=== PATIENT | female | born 1960 | race Caucasian/White ===

== ENCOUNTER 2025-01-25 13:58 | Inpatient (IN) | payer MEDICARE, BC, MEDICAID ==
[~2025-01-25] VITALS: Ht 175.3 cm; Wt 70.8 kg
[2025-01-25 14:58] LABS: PLATELET COUNT (AUTO) 631 K/uL (150-450); RED BLOOD CELL COUNT(AUTO) 3.61 MIL/uL (4.0-5.2); RED CELL DISTRIBUTION WIDTH 20.2 % (11.5-15.0)
[2025-01-25 15:03] LABS: WHITE BLOOD COUNT (AUTO) 34.6 K/uL (4.3-11.0)
[2025-01-25 15:05] LABS: CALCIUM, SERUM 9.6 mg/dL (8.5-10.1); CREATININE 0.3 mg/dL (0.6-1.3); SODIUM SERUM 134 mmol/L (136-145); UREA NITROGEN, BLOOD 24 mg/dL (7-18)
[2025-01-25 15:12] LABS: INR 1.04 (0.91-1.10)
[2025-01-25 15:13] LABS: ASPARTATE AMINOTRANSFERASE 38 U/L (15-37); LACTIC ACID 1.0 mmol/L (0.4-2.0); TOTAL PROTEIN, SERUM 8.4 g/dL (6.4-8.2)
[2025-01-25 15:27] LABS: APPEARANCE,URINE SLIGHTLY CLOUDY (CLEAR); BLOOD, URINE TRACE-INTA Ery/uL (NEGATIVE); LEUKOCYTE ESTERASE ,URINE 1+ (NEGATIVE); NITRITE, URINE NEGATIVE (NEGATIVE); UGLUCOSE NEGATIVE (NEGATIVE)
[2025-01-25 15:44] LABS: NEUTROPHILS % (MANUAL) 89 (42-76)
[2025-01-25 15:45] LABS: LYMPHOCYTES % (MANUAL) 10 % (16-48); MONOCYTES % (MANUAL) 1 % (0-11.0); PLATELET ESTIMATE INCREASED
[2025-01-25] MEDS ORDERED: ALBUTEROL 2.5 MG IH (15:54)
[2025-01-25] MEDS ORDERED: PSEU15LI BNOSTRILS (15:54)
[2025-01-25] MEDS ORDERED: SCOP1PAT11 TD (15:54)
[2025-01-25] MEDS ORDERED: MERO1PIG IV (15:54)
[2025-01-25] MEDS ORDERED: CLON0.5T4 GT (15:54)
[2025-01-25] MEDS ORDERED: HYDR-4075 GT (15:54)
[2025-01-25] MEDS ORDERED: LEVO50TA8 GT (15:54)
[2025-01-25] MEDS ORDERED: MULT-213 GT (15:54)
[2025-01-25] MEDS ORDERED: BETHANECHOL CHLORIDE GT (15:54)
[2025-01-25] MEDS ORDERED: MIDO5TAB4 GT (15:54)
[2025-01-25] MEDS ORDERED: CHLO473M5 PO (15:54)
[2025-01-25] MEDS ORDERED: IBUP-1953 GT (15:54)
[2025-01-25] MEDS ORDERED: CYCL5TAB GT (15:54)
[2025-01-25] MEDS ORDERED: ACET-73 GT (15:54)
[2025-01-25] MEDS ORDERED: ONDA4TAB5 GT (15:54)
[2025-01-25] MEDS ORDERED: SIME80TA15 GT (15:54)
[2025-01-25] MEDS ORDERED: SUMA100T16 GT (15:54)
[2025-01-25] MEDS ORDERED: LORA10TA7 GT (15:54)
[2025-01-25] MEDS ORDERED: CLOB15OI3 TP (15:54)
[2025-01-25] MEDS ORDERED: ASPI-1169 GT (15:54)
[2025-01-25] MEDS ORDERED: PEG15DRO2 EACHEYE (15:54)
[2025-01-25] MEDS ORDERED: IBUP-1957 GT (15:54)
[2025-01-25] MEDS ORDERED: LACT1CAP61 GT (15:54)
[2025-01-25] MEDS ORDERED: CRAN500T3 GT (15:54)
[2025-01-25] MEDS ORDERED: ACET325T53 GT (15:54)
[2025-01-25] MEDS ORDERED: PREG50CA GT (15:54)
[2025-01-25] MEDS ORDERED: ENOX40DI SQ (15:54)
[2025-01-25] MEDS ORDERED: METO25TA6 GT (15:54)
[2025-01-25] MEDS ORDERED: GLYC2TAB21 GT (15:54)
[2025-01-25] MEDS ORDERED: ALBUTEROL IH (15:54)
[2025-01-25] MEDS ORDERED: DIAZ5TAB GT (15:54)
[2025-01-25] MEDS ORDERED: MAGN400O6 GT (15:54)
[2025-01-25] MEDS ORDERED: NA P133E RC (15:54)
[2025-01-25] MEDS ORDERED: HYDR-3972 GT (15:54)
[2025-01-25] MEDS ORDERED: BISA10SU11 RC (15:54)
[2025-01-25] MEDS ORDERED: POLY17PO4 GT (15:54)
[2025-01-25] MEDS ORDERED: DIGOXIN GT (15:54)
[2025-01-25] MEDS ORDERED: ATROVENT IH (15:54)
[2025-01-25] MEDS ORDERED: LANS30CA56 GT (15:54)
[2025-01-25] MEDS ORDERED: DOCU50LI GT (15:54)
[2025-01-25] MEDS ORDERED: CETI10CA8 GT (15:54)
[2025-01-25 15:55] LABS: ADD URINE CULTURE YES; COARSE GRANULAR CASTS,URINE Few /LPF (None Seen); SQUAMOUS EPITHELIAL CELL,UR Moderate /HPF (None Seen)
[2025-01-25] MEDS: PIPERACILLIN /TAZOBACTAM 3.375 G in IV D5W 50 ML IV ONE (16:00)
[2025-01-25] MEDS: ACETAMINOPHEN ES 500 MG TABLET PO ONE (16:09)
[2025-01-25] MEDS ORDERED: ACETAMINOPHEN ES 500 MG TABLET ONE (16:10)
[2025-01-25] MEDS: ACETAMINOPHEN ES 500 MG TABLET GT ONE (16:30)
[2025-01-25] MEDS ORDERED: SCOPOLAMINE PATCH 1 MG/72HR TD SCH (16:30)
[2025-01-25] MEDS ORDERED: DIAZEPAM 5 MG TABLET GT PRN (16:30)
[2025-01-25] MEDS ORDERED: MIDODRINE HCL (5MG) 5 MG TABLET GT PRN (16:30)
[2025-01-25] MEDS ORDERED: MORPHINE SULFATE INJ 2 MG/ML DISP.SYRIN IV PRN (16:30)
[2025-01-25] MEDS ORDERED: MAGNESIUM HYDROXIDE 30 ML UDC PO PRN (16:30)
[2025-01-25] MEDS ORDERED: DOSING PER PHARMACY-VANCOMYCIN IV XX PRN (16:30)
[2025-01-25] MEDS ORDERED: hydrALAZINE HCL IV 20 MG VIAL IV PRN (16:30)
[2025-01-25] MEDS ORDERED: ONDANSETRON HCL/PF 4 MG/2 ML VIAL IVP PRN (16:30)
[2025-01-25] MEDS ORDERED: ALBUTEROL FS 2.5 MG/0.5 ML VIAL.NEB NEB PRN (16:30)
[2025-01-25] MEDS: VANCOMYCIN 1 GM in IV D5W 250 ML IV ONE (16:34)
[2025-01-25 16:58] LABS: FRACTIONATED INSPIRED OXYGEN-V 100.0 %; PEEP,VBG 5 cm H2O; SET RATE, VBG 16.0; SITE, VBG LEFT RADIAL; VBG BASE EXCESS 7.7 mmol/L (-2.0-3.0); VBG HCO3 35.4 mmol/L (22.0-29.0); VBG MetHb 0.4 % (0.5-1.5); VBG OXYGEN SATURATION 97.0 % (60.0-85.0); VBG PCO2 70.2 mmHg (38.0-54.0); VBG PH 7.320 (7.320-7.430); VBG PO2 99.3 mmHg (23.0-48.0); VBG TOTAL HEMOGLOBIN 9.6 G/dL (12.0-16.0); VT, VBG 450 mL
[2025-01-25 17:49] VITALS: BP 150/82; TEMP 98.6; O2SAT 97
[2025-01-25] MEDS: CHLORHEXIDINE GLUCONATE 15 ML UDC MM SCH (19:23)
[2025-01-25] MEDS: METOPROLOL TARTRATE 25 MG TABLET GT SCH (19:23)
[2025-01-25] MEDS: DOXYCYCLINE 100 MG in IV D5W 100 ML IV SCH (19:25)
[2025-01-25] MEDS: SCOPOLAMINE PATCH 1 MG/72HR TD SCH (19:25)
[2025-01-25] MEDS: DOCUSATE SODIUM LIQ 100 MG/10 ML UDC PO SCH (19:26)
[2025-01-25] MEDS: ALBUTEROL FS 2.5 MG/0.5 ML VIAL.NEB NEB SCH (19:52)
[2025-01-25 20:16] LABS: ABG BASE EXCESS 9.3 mmol/L (-2.0-3.0); ABG OXYGEN SATURATION 97.6 % (94.0-98.0); ABG PCO2 70.8 mmHg (32.0-45.0); ABG PH 7.335 (7.350-7.450); ABG PO2 105.4 mmHg (83.0-108.0); ABG TOTAL HEMOGLOBIN 9.7 G/dL (12.0-16.0); FRACTIONATED INSPIRED OXYGEN 100.0 %; PEEP,BG 7 cm H2O; SET RATE, BG 20.0; SITE, ABG RIGHT RADIAL; VT, ABG 450 mL
[2025-01-25] MEDS: VANCOMYCIN 750 MG in IV D5W 250 ML IV ONE ×2 (20:23→20:35)
[2025-01-25] MEDS: MEROPENEM 1 G in IV NS 0.9% 100 ML IV SCH (21:12)
[2025-01-25] MEDS: HEPARIN SODIUM, PORCINE 5000 UNITS/1 ML VIAL SQ SCH (21:14)
[2025-01-26] MEDS: VANCOMYCIN HCL 1.25 GM in IV D5W 250 ML IV SCH ×2 (01:04→17:01)
[2025-01-26] MEDS ORDERED: VANCOMYCIN HCL 1.25 GM in IV D5W 250 ML IV SCH (02:00)
[2025-01-26] MEDS: JEVITY 1.2 CAL 1,000 ML BOTTLE GT PRN (02:43)
[2025-01-26 05:30] LABS: ABG BASE EXCESS 5.0 mmol/L (-2.0-3.0); ABG OXYGEN SATURATION 98.1 % (94.0-98.0); ABG PCO2 69.5 mmHg (32.0-45.0); ABG PH 7.294 (7.350-7.450); ABG PO2 128.3 mmHg (83.0-108.0); ABG TOTAL HEMOGLOBIN 10.0 G/dL (12.0-16.0); FRACTIONATED INSPIRED OXYGEN 100.0 %; PEEP,BG 7 cm H2O; SET RATE, BG 20.0; SITE, ABG RIGHT RADIAL; VT, ABG 450 mL
[2025-01-26 07:03] LABS: PLATELET COUNT (AUTO) 689 K/uL (150-450); RED BLOOD CELL COUNT(AUTO) 3.68 MIL/uL (4.0-5.2); RED CELL DISTRIBUTION WIDTH 19.7 % (11.5-15.0)
[2025-01-26 07:14] LABS: WHITE BLOOD COUNT (AUTO) 36.4 K/uL (4.3-11.0)
[2025-01-26 07:18] LABS: ASPARTATE AMINOTRANSFERASE 29.0 U/L (15-37); CALCIUM, SERUM 9.8 mg/dL (8.5-10.1); CREATININE 0.3 mg/dL (0.6-1.3); PHOSPHORUS 2.4 mg/dL (2.5-4.9); SODIUM SERUM 132.0 mmol/L (136-145); TOTAL PROTEIN, SERUM 8.4 g/dL (6.4-8.2); UREA NITROGEN, BLOOD 20.0 mg/dL (7-18)
[2025-01-26 08:00] VITALS: BP 120/71; TEMP 98.3; O2SAT 96
[2025-01-26] MEDS ORDERED: CLOBETASOL 0.05% OINT 30 GM TUBE TP PRN (09:00)
[2025-01-26] MEDS: LEVOTHYROXINE SODIUM 50 MCG TABLET GT SCH (09:14)
[2025-01-26] MEDS: ARTIFICIAL TEARS 15 ML BOTTLE EACHEYE SCH (09:15)
[2025-01-26] MEDS: ASPIRIN 81 MG TAB.CHEW GT SCH (09:15)
[2025-01-26] MEDS: PREGABALIN 25 MG CAPSULE GT SCH (09:15)
[2025-01-26] MEDS: DIGOXIN 0.25 MG TABLET GT SCH (09:20)
[2025-01-26] MEDS: POLYETHYLENE GLYCOL 3350 17 GM POWD.PACK PO SCH (09:20)
[2025-01-26 09:59] LABS: IRON, SERUM 12 ug/dl (50-175)
[2025-01-26 10:11] LABS: BAND % (MANUAL) 4 % (0.0-5.0); BASOPHILS % (MANUAL) 0 % (0.0-2.0); EOSINOPHILS % (MANUAL) 0 % (0-4); LYMPHOCYTES % (MANUAL) 5 % (16-48); MONOCYTES % (MANUAL) 2 % (0-11.0); NEUTROPHILS % (MANUAL) 89 (42-76); PLATELET ESTIMATE ADEQUATE
[2025-01-26 12:00] VITALS: BP 116/64; TEMP 99; O2SAT 98
[2025-01-26 12:20] VITALS: BP 129/74
[2025-01-26] MEDS: GLYCOPYRROLATE 1 MG TABLET GT PRN (12:41)
[2025-01-26] MEDS ORDERED: SUMATRIPTAN SUCCINATE 25 MG TABLET GT PRN (14:00)
[2025-01-26 16:00] VITALS: BP 124/81; TEMP 98.4; O2SAT 98
[2025-01-26] MEDS: NEUTRA PHOS 1 POWD.PACKET NG ONE (17:03)
[2025-01-26 20:00] VITALS: BP 130/87; TEMP 99; O2SAT 98
[2025-01-26] MEDS: IPRATROPIUM NEB FS 0.5 MG/2.5 ML AMPUL.NEB IH SCH (20:14)
[2025-01-26] MEDS: IV NS 0.9% 1,000 ML IV PRN (20:43)
[2025-01-27] VITALS (8 sets, daily range): BP systolic 90–128; BP diastolic 60–75; TEMP 97.7–99.4; O2SAT 98–100
[2025-01-27 08:31] LABS: PLATELET COUNT (AUTO) 675 K/uL (150-450); RED BLOOD CELL COUNT(AUTO) 3.55 MIL/uL (4.0-5.2); RED CELL DISTRIBUTION WIDTH 19.7 % (11.5-15.0); WHITE BLOOD COUNT (AUTO) 29.0 K/uL (4.3-11.0)
[2025-01-27 09:01] LABS: CALCIUM, SERUM 9.3 mg/dL (8.5-10.1); CREATININE 0.4 mg/dL (0.6-1.3); PHOSPHORUS 1.9 mg/dL (2.5-4.9); UREA NITROGEN, BLOOD 18.0 mg/dL (7-18)
[2025-01-27 09:08] LABS: SODIUM SERUM 137.0 mmol/L (136-145)
[2025-01-27] MEDS: IV NS 0.9% 1,000 ML IV SCH (12:12)
[2025-01-27] MEDS: METOPROLOL TARTRATE 25 MG TABLET GT SCH ×2 (13:32→17:25)
[2025-01-27] MEDS: IV NS 0.9% 1,000 ML IV ONE (13:53)
[2025-01-27] MEDS: NEUTRA PHOS 1 POWD.PACKET NG ONE (17:18)
[2025-01-27] MEDS: VANCOMYCIN 750 MG in IV D5W 250 ML IV SCH (18:02)
[2025-01-27] MEDS: ACETAMINOPHEN 325 MG TABLET PO PRN (22:47)
[2025-01-28] VITALS: BP 140/86; TEMP 98.1
[2025-01-28 04:00] VITALS: BP 121/81; TEMP 97.9
[2025-01-28 07:28] LABS: PLATELET COUNT (AUTO) 650 K/uL (150-450); RED BLOOD CELL COUNT(AUTO) 3.63 MIL/uL (4.0-5.2); RED CELL DISTRIBUTION WIDTH 19.8 % (11.5-15.0)
[2025-01-28 07:37] LABS: CALCIUM, SERUM 9.0 mg/dL (8.5-10.1); CREATININE 0.2 mg/dL (0.6-1.3); SODIUM SERUM 137.0 mmol/L (136-145); UREA NITROGEN, BLOOD 12.0 mg/dL (7-18)
[2025-01-28 08:00] VITALS: BP 152/89; TEMP 97.5; O2SAT 96
[2025-01-28 08:17] LABS: WHITE BLOOD COUNT (AUTO) 30.7 K/uL (4.3-11.0)
[2025-01-28 12:00] VITALS: BP 141/83; TEMP 98.8; O2SAT 94
[2025-01-28 12:25] LABS: BASOPHILS % (MANUAL) 0 % (0.0-2.0); EOSINOPHILS % (MANUAL) 0 % (0-4); LYMPHOCYTES % (MANUAL) 11 % (16-48); MONOCYTES % (MANUAL) 4 % (0-11.0); NEUTROPHILS % (MANUAL) 85 (42-76); PLATELET ESTIMATE ADEQUATE
[2025-01-28 16:00] VITALS: BP 150/95; TEMP 99; O2SAT 94
[2025-01-28] MEDS: IV NS 0.9% 1,000 ML IV PRN (19:18)
[2025-01-28 20:00] VITALS: BP 131/79; TEMP 98.2; O2SAT 96
[2025-01-28] MEDS: LEVOFLOXACIN 500 MG /D5W 100ML 500 MG in PREMIX 1 EA IV SCH (22:14)
[2025-01-28] MEDS: LEVOFLOXACIN 500 MG /D5W 100ML 100 ML IV ONE (22:38)
[2025-01-29] VITALS: BP 142/92; TEMP 98.4; O2SAT 96
[2025-01-29 04:00] VITALS: BP 134/87; TEMP 98.4; O2SAT 95
[2025-01-29 08:00] VITALS: BP 148/74; TEMP 98.8; O2SAT 97
[2025-01-29 08:21] LABS: CALCIUM, SERUM 9.0 mg/dL (8.5-10.1); CREATININE 0.2 mg/dL (0.6-1.3); SODIUM SERUM 132.0 mmol/L (136-145); UREA NITROGEN, BLOOD 15.0 mg/dL (7-18)
[2025-01-29 08:27] LABS: PLATELET COUNT (AUTO) 751 K/uL (150-450); RED BLOOD CELL COUNT(AUTO) 3.52 MIL/uL (4.0-5.2); RED CELL DISTRIBUTION WIDTH 19.6 % (11.5-15.0); WHITE BLOOD COUNT (AUTO) 26.9 K/uL (4.3-11.0)
[2025-01-29 09:56] LABS: LYMPHOCYTES % (MANUAL) 4 % (16-48); MONOCYTES % (MANUAL) 3 % (0-11.0); MYELOCYTES % 2 % (0-0); NEUTROPHILS % (MANUAL) 91 (42-76); PLATELET ESTIMATE INCREASED
[2025-01-29 12:00] VITALS: BP 139/79; TEMP 98.6; O2SAT 97
[2025-01-29 16:00] VITALS: BP 108/70; TEMP 98.4; O2SAT 100
[2025-01-29 20:00] VITALS: BP 133/81; TEMP 98.2; O2SAT 95
[2025-01-30] VITALS: BP 136/79; TEMP 97.3; O2SAT 95
[2025-01-30 04:00] VITALS: BP 124/69; TEMP 97.9; O2SAT 95
[2025-01-30 07:59] LABS: PLATELET COUNT (AUTO) 752 K/uL (150-450); RED BLOOD CELL COUNT(AUTO) 3.38 MIL/uL (4.0-5.2); RED CELL DISTRIBUTION WIDTH 19.9 % (11.5-15.0); WHITE BLOOD COUNT (AUTO) 21.8 K/uL (4.3-11.0)
[2025-01-30 08:00] VITALS: BP 125/69; TEMP 98.4; O2SAT 97
[2025-01-30 08:22] LABS: CALCIUM, SERUM 9.1 mg/dL (8.5-10.1); CREATININE 0.3 mg/dL (0.6-1.3); SODIUM SERUM 139.0 mmol/L (136-145); UREA NITROGEN, BLOOD 18.0 mg/dL (7-18)
[2025-01-30 12:00] VITALS: BP 128/78; TEMP 98.1; O2SAT 97
[2025-01-30 13:13] LABS: LYMPHOCYTES % (MANUAL) 8 % (16-48); METAMYELOCYTES % 2 % (0-0); MONOCYTES % (MANUAL) 3 % (0-11.0); MYELOCYTES % 4 % (0-0); NEUTROPHILS % (MANUAL) 83 (42-76); PLATELET ESTIMATE INCREASED
[2025-01-30 16:00] VITALS: BP 127/82; TEMP 99.4; O2SAT 98
[2025-01-30 20:00] VITALS: BP 117/71; TEMP 96.8; O2SAT 99
[2025-01-31] VITALS: BP 123/74; TEMP 96.9; O2SAT 99
[2025-01-31 04:00] VITALS: BP 136/78; TEMP 97.5; O2SAT 99
[2025-01-31 07:01] LABS: PLATELET COUNT (AUTO) 723 K/uL (150-450); RED BLOOD CELL COUNT(AUTO) 3.39 MIL/uL (4.0-5.2); RED CELL DISTRIBUTION WIDTH 19.9 % (11.5-15.0); WHITE BLOOD COUNT (AUTO) 22.6 K/uL (4.3-11.0)
[2025-01-31 07:14] LABS: CALCIUM, SERUM 8.6 mg/dL (8.5-10.1); CREATININE 0.3 mg/dL (0.6-1.3); SODIUM SERUM 138.0 mmol/L (136-145); UREA NITROGEN, BLOOD 18.0 mg/dL (7-18)
[2025-01-31 08:00] VITALS: BP 133/77; TEMP 98.2; O2SAT 99
[2025-01-31 12:00] VITALS: BP 132/72; TEMP 97.2; O2SAT 95
[2025-01-31 16:00] VITALS: BP 135/80; TEMP 98.8; O2SAT 94
[2025-01-31 20:00] VITALS: BP 116/76; TEMP 97.9; O2SAT 96
[2025-02-01] VITALS: BP 132/79; TEMP 98.2; O2SAT 96
[2025-02-01 04:00] VITALS: BP 96/62; TEMP 97.9; O2SAT 99
[2025-02-01 07:10] LABS: PLATELET COUNT (AUTO) 803 K/uL (150-450); RED BLOOD CELL COUNT(AUTO) 3.50 MIL/uL (4.0-5.2); RED CELL DISTRIBUTION WIDTH 20.3 % (11.5-15.0); WHITE BLOOD COUNT (AUTO) 26.6 K/uL (4.3-11.0)
[2025-02-01 07:32] LABS: CALCIUM, SERUM 8.5 mg/dL (8.5-10.1); CREATININE 0.2 mg/dL (0.6-1.3); SODIUM SERUM 137.0 mmol/L (136-145); UREA NITROGEN, BLOOD 14.0 mg/dL (7-18)
[2025-02-01 08:00] VITALS: BP 131/75; TEMP 98.6; O2SAT 97
[2025-02-01 09:48] LABS: ABG BASE EXCESS 13.0 mmol/L (-2.0-3.0); ABG OXYGEN SATURATION 94.8 % (94.0-98.0); ABG PCO2 65.6 mmHg (32.0-45.0); ABG PH 7.400 (7.350-7.450); ABG PO2 78.1 mmHg (83.0-108.0); ABG TOTAL HEMOGLOBIN 9.1 G/dL (12.0-16.0); FRACTIONATED INSPIRED OXYGEN 60.0 %; PEEP,BG 5 cm H2O; SET RATE, BG 20.0; SITE, ABG LEFT RADIAL; VT, ABG 450 mL
[2025-02-01 12:00] VITALS: BP 142/83; TEMP 98.4; O2SAT 93
[2025-02-01 16:00] VITALS: BP 138/86; TEMP 99; O2SAT 98
[2025-02-01 20:00] VITALS: BP 89/57; TEMP 98.4; O2SAT 95
[2025-02-02] VITALS: BP 126/69; TEMP 98.2; O2SAT 94
[2025-02-02 04:00] VITALS: BP 126/76; TEMP 98.6; O2SAT 95
[2025-02-02 06:26] LABS: PLATELET COUNT (AUTO) 804 K/uL (150-450); RED BLOOD CELL COUNT(AUTO) 3.52 MIL/uL (4.0-5.2); RED CELL DISTRIBUTION WIDTH 20.3 % (11.5-15.0); WHITE BLOOD COUNT (AUTO) 24.0 K/uL (4.3-11.0)
[2025-02-02 06:34] LABS: CALCIUM, SERUM 8.8 mg/dL (8.5-10.1); CREATININE 0.3 mg/dL (0.6-1.3); PHOSPHORUS 2.7 mg/dL (2.5-4.9); SODIUM SERUM 141.0 mmol/L (136-145); UREA NITROGEN, BLOOD 15.0 mg/dL (7-18)
[2025-02-02 08:00] VITALS: BP 106/84; TEMP 97.9; O2SAT 95
[2025-02-02 12:00] VITALS: BP 136/85; TEMP 98.4; O2SAT 98
[2025-02-02 16:00] VITALS: BP 113/68; TEMP 98.1; O2SAT 96
[2025-02-02 20:00] VITALS: BP 109/70; TEMP 98.1; O2SAT 96
[2025-02-03] VITALS (7 sets, daily range): BP systolic 101–158; BP diastolic 56–88; TEMP 97.7–98.2; O2SAT 92–100
[2025-02-03 11:31] LABS: CALCIUM, SERUM 8.3 mg/dL (8.5-10.1); CREATININE 0.2 mg/dL (0.6-1.3); PHOSPHORUS 2.5 mg/dL (2.5-4.9); SODIUM SERUM 135.0 mmol/L (136-145); UREA NITROGEN, BLOOD 12.0 mg/dL (7-18)
[2025-02-03] MEDS: CEFEPIME 2 GM in IV D5W 100 ML IV SCH (13:01)
[2025-02-03 14:08] LABS: PLATELET COUNT (AUTO) 695 K/uL (150-450); RED BLOOD CELL COUNT(AUTO) 3.46 MIL/uL (4.0-5.2); RED CELL DISTRIBUTION WIDTH 20.6 % (11.5-15.0); WHITE BLOOD COUNT (AUTO) 22.1 K/uL (4.3-11.0)
[2025-02-03] MEDS: SULFAMETH/TRIMETH 800/160 MG 1 UDTAB TABLET PO SCH (21:27)
[2025-02-04] VITALS: BP 108/68; TEMP 98.1; O2SAT 100
[2025-02-04 04:00] VITALS: BP 112/71; TEMP 98.3; O2SAT 100
[2025-02-04 07:51] LABS: ABG BASE EXCESS 9.9 mmol/L (-2.0-3.0); ABG OXYGEN SATURATION 94.1 % (94.0-98.0); ABG PCO2 48.9 mmHg (32.0-45.0); ABG PH 7.469 (7.350-7.450); ABG PO2 74.9 mmHg (83.0-108.0); ABG TOTAL HEMOGLOBIN 9.0 G/dL (12.0-16.0); FRACTIONATED INSPIRED OXYGEN 50.0 %; PEEP,BG 5 cm H2O; SET RATE, BG 20.0; SITE, ABG RIGHT RADIAL; VT, ABG 450 mL
[2025-02-04 08:00] VITALS: BP 117/71; TEMP 98.2; O2SAT 95
[2025-02-04 08:11] LABS: PLATELET COUNT (AUTO) 709 K/uL (150-450); RED BLOOD CELL COUNT(AUTO) 3.66 MIL/uL (4.0-5.2); RED CELL DISTRIBUTION WIDTH 21.1 % (11.5-15.0); WHITE BLOOD COUNT (AUTO) 20.6 K/uL (4.3-11.0)
[2025-02-04 08:18] LABS: CALCIUM, SERUM 9.1 mg/dL (8.5-10.1); CREATININE 0.2 mg/dL (0.6-1.3); PHOSPHORUS 3.0 mg/dL (2.5-4.9); UREA NITROGEN, BLOOD 13.0 mg/dL (7-18)
[2025-02-04 08:33] LABS: SODIUM SERUM 140.0 mmol/L (136-145)
[2025-02-04 12:00] VITALS: BP 139/92; TEMP 97.9; O2SAT 93
[2025-02-04 16:00] VITALS: BP 129/77; TEMP 100; O2SAT 97
[2025-02-04 20:00] VITALS: BP 102/65; TEMP 97.7; O2SAT 98
[2025-02-04] MEDS: CHLORHEXIDINE GLUCONATE 15 ML UDC MM SCH (21:06)
[2025-02-04] MEDS: PREGABALIN 25 MG CAPSULE GT SCH (21:07)
[2025-02-04] MEDS: DOCUSATE SODIUM LIQ 100 MG/10 ML UDC GT SCH (21:07)
[2025-02-05] VITALS: BP 126/75; TEMP 97.7; O2SAT 96
[2025-02-05 04:00] VITALS: BP 113/67; TEMP 97.8; O2SAT 96
[2025-02-05 06:55] LABS: PLATELET COUNT (AUTO) 657 K/uL (150-450); RED BLOOD CELL COUNT(AUTO) 3.82 MIL/uL (4.0-5.2); RED CELL DISTRIBUTION WIDTH 21.4 % (11.5-15.0); WHITE BLOOD COUNT (AUTO) 18.8 K/uL (4.3-11.0)
[2025-02-05 07:38] LABS: CALCIUM, SERUM 9.2 mg/dL (8.5-10.1); CREATININE 0.2 mg/dL (0.6-1.3); PHOSPHORUS 3.4 mg/dL (2.5-4.9); SODIUM SERUM 139.0 mmol/L (136-145); UREA NITROGEN, BLOOD 15.0 mg/dL (7-18)
[2025-02-05 08:00] VITALS: BP 125/74; TEMP 97.7; O2SAT 99
[2025-02-05 12:00] VITALS: BP 141/86; TEMP 97.5; O2SAT 99
[2025-02-05 16:00] VITALS: BP 99/62; TEMP 97.7; O2SAT 98
[2025-02-05 16:53] VITALS: BP 99/62
== END 2025-02-05 21:05 | DRG 870 ==
LOC: ER 14:09 → TELE-TD 16:56 → TELE1 01-27 05:04
PROVIDERS: ADMIT Internal Medicine; ATTEND Student in an Organized Health Care Education/Training Program
PROC: 5A1955Z Respiratory Ventilation, Greater than 96 Consecutive Hours (ICD-10-PCS; principal; 2025-01-25)
DX: A41.9 Sepsis, unspecified organism (principal); I21.A1 Myocardial infarction type 2; J96.21 Acute and chronic respiratory failure with hypoxia; J96.22 Acute and chronic respiratory failure with hypercapnia; R53.2 Functional quadriplegia; J69.0 Pneumonitis due to inhalation of food and vomit; J90 Pleural effusion, not elsewhere classified; Z93.0 Tracheostomy status; G12.21 Amyotrophic lateral sclerosis; T83.511A Infection and inflammatory reaction due to indwelling urethral catheter, initial encounter; Z99.11 Dependence on respirator [ventilator] status; N39.0 Urinary tract infection, site not specified; B96.5 Pseudomonas (aeruginosa) (mallei) (pseudomallei) as the cause of diseases classified elsewhere; E03.9 Hypothyroidism, unspecified; D50.9 Iron deficiency anemia, unspecified; I50.9 Heart failure, unspecified; I11.0 Hypertensive heart disease with heart failure; E87.4 Mixed disorder of acid-base balance; E87.1 Hypo-osmolality and hyponatremia; J98.11 Atelectasis; D75.839 Thrombocytosis, unspecified; E83.39 Other disorders of phosphorus metabolism; E87.5 Hyperkalemia; E87.8 Other disorders of electrolyte and fluid balance, not elsewhere classified; Z86.73 Personal history of transient ischemic attack (TIA), and cerebral infarction without residual deficits; Z87.440 Personal history of urinary (tract) infections; Z93.1 Gastrostomy status; R13.10 Dysphagia, unspecified; E86.9 Volume depletion, unspecified; Y84.6 Urinary catheterization as the cause of abnormal reaction of the patient, or of later complication, without mention of misadventure at the time of the procedure; Y92.129 Unspecified place in nursing home as the place of occurrence of the external cause; Z86.14 Personal history of Methicillin resistant Staphylococcus aureus infection
CPT/HCPCS: 31720; 36415; 36600; 71045-TC; 80048-TC; 80053-TC; 80076-TC; 80202-TC; 81001; 82728-TC; 82803-TC; 82962-TC; 83540-TC; 83605-TC; 83735-TC; 83880; 84100-TC; 84439-TC; 84443-TC; 84481; 84484-TC; 84550-TC; 85025-TC; 85027-TC; 85730-TC; 87040-TC; 87070-TC; 87081-TC; 87086-TC; 87186-TC; 87205-TC; 93307-TC; 93970-TC; 94002-TC; 94003-TC; 94640-TC; 94760-TC; 94762-TC; 94799-TC; A4216; A4223; A4623; A6213; A6403; A7526; G0378; J0692; J1644; J1956; J2185; J2543; J3373; J3374; J3490; J7030; J7042; J7050; J7060